=== PATIENT | female | born 1995 | race Hispanic/Latino ===

== ENCOUNTER 2018-02-25 08:30 | Emergency (ER) | payer BC ==
[~2018-02-25] VITALS: Ht 162.6 cm; Wt 60.8 kg
[2018-02-25] MEDS ORDERED: PENICILLIN G BENZATHINE LA 1.2 MU TBX IM STA (08:33)
[2018-02-25] MEDS ORDERED: DEXAMETHASONE SOD PHOS 10 MG/1 ML VIAL INJ ONE (08:45)
== END 2018-02-25 09:12 | disposition home or self-care (01) ==
LOC: ER 08:30
DX: J03.01 Acute recurrent streptococcal tonsillitis (principal)
CPT/HCPCS: 99282; J0561